=== PATIENT | male | born 1930 | race Caucasian/White ===

== ENCOUNTER 2016-04-22 00:58 | Inpatient (IN) | payer OTHER ==
[~2016-04-22] VITALS: Ht 185.4 cm; Wt 91.6 kg
[~2016-04-22 00:58] MED LIST: ACID REDUCER150 MG PO; BACLO PO; BACLOFEN10 MG PO; COZAAR50 MG PO; CYM PO; CYMBALTA; CYMBALTA60 MG PO; DIOVAN PO; GABAPENTIN600 MG PO; HYDROCODONE PO; LIORESAL10 MG PO; MYRBETRIQ25 MG PO; PAROXETINE HCL20 MG PO; PERCOCET 5/31 TABLET PO; RANITIDINE; ZOLPIDEM; [UNRECOGNIZED DRUG - REMARK]
[2016-04-22 02:35] LABS: EOSINOPHIL (%) 1.9 % (0-5); EOSINOPHIL COUNT 0.2 K/uL (0-0.3); IMMATURE GRANULOCYTE (%) 0.1 % (0.0-0.7); IMMATURE GRANULOCYTE COUNT 0.1 K/uL; LYMPHOCYTE COUNT 2.7 K/uL (1.0-2.8); MCH 30.4 PG (29.0-34.0); MCHC 33.7 G/DL (30.0-36.0); MCV 90.4 FL (86-99); MEAN PLAT.VOLUME 12.1 uM^3 (9.0-12.4); MONOCYTE (%) 11.3 % (3-12); MONOCYTE COUNT 1.1 K/uL (0-0.8); NEUTROPHIL (%) 57.8 % (45-76); NEUTROPHIL COUNT 5.4 K/uL (1.8-6.4); PLATELET COUNT 129 K/uL (156-360); RBC DIS.WIDTH-CV 15.1 % (11.8-14.6); RBC DIS.WIDTH-SD 49.2 % (39-53); RED BLOOD COUNT 5.42 M/uL (4.00-5.50); WHITE BLOOD COUNT 9.4 K/uL (4.1-10.2)
[2016-04-22 02:53] LABS: CHLORIDE 105 mEq/L (99-109); POTASSIUM 3.8 mEq/L (3.7-5.4); SODIUM 141 mEq/L (136-147)
[2016-04-22 02:55] LABS: GLUCOSE 107 mg/dL (70-99)
[2016-04-22 02:56] LABS: ANION GAP 7 MEQ/L (2-14)
[2016-04-22 02:57] LABS: TOTAL BILIRUBIN 0.9 mg/dL (0.0-1.0)
[2016-04-22 02:59] LABS: ALKALINE PHOSPHATASE 110 IU/L (3-129); GFR ESTIMATE (CALCULATED) > 59 mL/min/
[2016-04-22 03:00] LABS: UREA NITROGEN (BUN) 24 mg/dL (9-23)
[2016-04-22 03:02] LABS: LIPASE 11 U/L (1.0-51.0)
[2016-04-22 03:06] LABS: BASE EXCESS 2.7 mEq/L (-3 to +3); BICARBONATE 30.2 mEq/L (22-26); CARBOXY HGB 1.8 % (0-5); COMMENTS - BLOOD GASES C+A+; DEVICE NC; METHEMOGLOBIN 1.2 % (0-1.5); O2 FLOW 1 L/MIN; PCO2 56 mm Hg (35-45); PO2 98 mm Hg (80-100); SITE RR; pH 7.34 (7.35-7.45)
[2016-04-22 03:48] LABS: ADD MIUA? YES; BILIRUBIN NEGATIVE; BLOOD SMALL; COLOR AMBER ((YELLOW)); GLUCOSE (STRIP) NEGATIVE; KETONES 5; LEUKOCYTES NEGATIVE; NITRITE NEGATIVE; PROTEIN (STRIP) NEGATIVE
[2016-04-22 03:52] LABS: BACTERIA NONE SEEN /HPF; EPITHELIAL CELLS NONE SEEN /HPF; HYALINE CASTS 0-5 /LPF; MUCUS 3+ /LPF; RED BLOOD CELLS 20-30 /HPF (0-5); UCUL ADDED? NO; WHITE BLOOD CELLS 0-5 /HPF (0-5)
[2016-04-22] MEDS ORDERED: OXYBUTYNIN CHLO15 MG PO (05:31)
[2016-04-22] MEDS ORDERED: GABAPENTIN800 MG PO (05:31)
[2016-04-22] MEDS ORDERED: BACLOFEN20 MG PO (07:54)
[2016-04-22 10:44] LABS: BASE EXCESS 2.1 mEq/L (-3 to +3); BICARBONATE 29.9 mEq/L (22-26); CARBOXY HGB 2.7 % (0-5); COMMENTS - BLOOD GASES A+C+; DEVICE NC; METHEMOGLOBIN 0.9 % (0-1.5); O2 FLOW 1 L/MIN; PCO2 58 mm Hg (35-45); PO2 105 mm Hg (80-100); SITE RR; pH 7.32 (7.35-7.45)
[2016-04-22 16:57] VITALS: BP 170/100
[2016-04-22 20:12] VITALS: BP 144/83
[2016-04-22 21:34] LABS: POINT-OF-CARE METER ID UU14188625
[2016-04-22 23:59] VITALS: BP 146/94
[2016-04-23 03:44] VITALS: BP 150/84
[2016-04-23 04:05] LABS: POINT-OF-CARE METER ID UU14188625
[2016-04-23 07:23] LABS: HEMATOCRIT 48.4 % (38.0-50.0); MCHC 33.7 G/DL (30.0-36.0); MEAN PLAT.VOLUME 12.8 uM^3 (9.0-12.4); PLATELET COUNT 98 K/uL (156-360); RBC DIS.WIDTH-CV 14.7 % (11.8-14.6); RBC DIS.WIDTH-SD 49.9 % (39-53); RED BLOOD COUNT 5.26 M/uL (4.00-5.50); WHITE BLOOD COUNT 8.1 K/uL (4.1-10.2)
[2016-04-23 07:29] VITALS: BP 167/88
[2016-04-23 07:47] LABS: ALKALINE PHOSPHATASE 88 IU/L (3-129); ANION GAP 7 MEQ/L (2-14); CHLORIDE 106 MEQ/L (99-109); GFR ESTIMATE (CALCULATED) > 59 mL/min/; GLUCOSE 88 mg/dL (70-99); SAMPLE HEMOLYSIS CHECK 2; SAMPLE ICTERIC CHECK 0; SAMPLE LIPEMIA CHECK 0; SODIUM 141 MEQ/L (136-147); TOTAL BILIRUBIN 0.9 MG/DL (0.0-1.0); UREA NITROGEN (BUN) 17 mg/dL (9-23)
[2016-04-23 07:48] LABS: POTASSIUM 4.6 MEQ/L (3.7-5.4)
[2016-04-23 11:05] VITALS: BP 143/75
[2016-04-23 15:01] VITALS: BP 140/81
[2016-04-23 19:18] VITALS: BP 177/84
[2016-04-24 00:03] VITALS: BP 160/92
[2016-04-24 03:46] VITALS: BP 160/90
[2016-04-24 07:01] LABS: EOSINOPHIL (%) 0.8 % (0-5); EOSINOPHIL COUNT 0.1 K/uL (0-0.3); HEMATOCRIT 47.8 % (38.0-50.0); IMMATURE GRANULOCYTE (%) 0.2 % (0.0-0.7); LYMPHOCYTE COUNT 1.6 K/uL (1.0-2.8); MCH 29.6 PG (29.0-34.0); MCHC 33.1 G/DL (30.0-36.0); MCV 89.5 FL (86-99); MEAN PLAT.VOLUME 12.4 uM^3 (9.0-12.4); MONOCYTE (%) 10.6 % (3-12); MONOCYTE COUNT 0.9 K/uL (0-0.8); NEUTROPHIL (%) 69.4 % (45-76); NEUTROPHIL COUNT 5.9 K/uL (1.8-6.4); PLATELET COUNT 107 K/uL (156-360); RBC DIS.WIDTH-CV 14.4 % (11.8-14.6); RBC DIS.WIDTH-SD 46.7 % (39-53); RED BLOOD COUNT 5.34 M/uL (4.00-5.50); WHITE BLOOD COUNT 8.4 K/uL (4.1-10.2)
[2016-04-24 07:23] LABS: ANION GAP 7 MEQ/L (2-14); CHLORIDE 102 MEQ/L (99-109); GFR ESTIMATE (CALCULATED) > 59 mL/min/; GLUCOSE 107 mg/dL (70-99); POTASSIUM 3.7 MEQ/L (3.7-5.4); SAMPLE HEMOLYSIS CHECK 0; SAMPLE ICTERIC CHECK 0; SAMPLE LIPEMIA CHECK 0; SODIUM 137 MEQ/L (136-147); UREA NITROGEN (BUN) 15 mg/dL (9-23)
[2016-04-24 07:31] VITALS: BP 158/75
[2016-04-24 11:06] VITALS: BP 142/74
[2016-04-24 15:21] VITALS: BP 165/75
[2016-04-24 19:36] VITALS: BP 142/83
[2016-04-25] VITALS: BP 151/89
[2016-04-25 04:00] VITALS: BP 153/96
[2016-04-25 07:52] VITALS: BP 128/87
[2016-04-25 13:58] VITALS: BP 126/78
[2016-04-25 19:45] VITALS: BP 147/93
[2016-04-25 23:39] VITALS: BP 146/98
[2016-04-26 04:17] VITALS: BP 134/92
[2016-04-26 06:31] LABS: EOSINOPHIL (%) 0.7 % (0-5); EOSINOPHIL COUNT 0.1 K/uL (0-0.3); IMMATURE GRANULOCYTE (%) 0.3 % (0.0-0.7); LYMPHOCYTE COUNT 1.4 K/uL (1.0-2.8); MONOCYTE (%) 13.3 % (3-12); MONOCYTE COUNT 1.5 K/uL (0-0.8); NEUTROPHIL (%) 73.4 % (45-76); NEUTROPHIL COUNT 8.5 K/uL (1.8-6.4)
[2016-04-26 06:46] LABS: ANION GAP 9 MEQ/L (2-14); CHLORIDE 100 MEQ/L (99-109); GFR ESTIMATE (CALCULATED) > 59 mL/min/; GLUCOSE 115 mg/dL (70-99); POTASSIUM 3.8 MEQ/L (3.7-5.4); SAMPLE HEMOLYSIS CHECK 0; SAMPLE ICTERIC CHECK 0; SAMPLE LIPEMIA CHECK 0; SODIUM 136 MEQ/L (136-147); UREA NITROGEN (BUN) 17 mg/dL (9-23)
[2016-04-26 06:49] LABS: HEMATOCRIT 51.8 % (38.0-50.0); MCV 88.2 FL (86-99); RBC DIS.WIDTH-CV 14.4 % (11.8-14.6); RBC DIS.WIDTH-SD 46.3 % (39-53); RED BLOOD COUNT 5.87 M/uL (4.00-5.50); WHITE BLOOD COUNT 11.6 K/uL (4.1-10.2)
[2016-04-26 07:25] LABS: HEMATOLOGY COMMENT 1 SMEAR COMPATIBLE; MEAN PLAT.VOLUME 12.6 uM^3 (9.0-12.4); PLAT.SUFFICIENCY DECREASED; PLATELET COUNT 112 K/uL (156-360); USER ID TLW
[2016-04-26 07:40] VITALS: BP 173/94
[2016-04-26 15:52] VITALS: BP 167/102
[2016-04-26 23:42] VITALS: BP 170/90
[2016-04-27 00:43] VITALS: BP 165/85
[2016-04-27 07:45] VITALS: BP 166/99
[2016-04-27 15:05] VITALS: BP 138/78
[2016-04-28] VITALS: BP 141/84
[2016-04-28 06:24] LABS: HEMATOCRIT 50.6 % (38.0-50.0); MCH 29.6 PG (29.0-34.0); MCHC 33.2 G/DL (30.0-36.0); MCV 89.1 FL (86-99); MEAN PLAT.VOLUME 12.7 uM^3 (9.0-12.4); PLATELET COUNT 129 K/uL (156-360); RBC DIS.WIDTH-CV 15.1 % (11.8-14.6); RBC DIS.WIDTH-SD 48.5 % (39-53); RED BLOOD COUNT 5.68 M/uL (4.00-5.50); WHITE BLOOD COUNT 12.6 K/uL (4.1-10.2)
[2016-04-28 06:50] LABS: ANION GAP 8 MEQ/L (2-14); CHLORIDE 101 MEQ/L (99-109); GFR ESTIMATE (CALCULATED) > 59 mL/min/; GLUCOSE 101 mg/dL (70-99); SAMPLE HEMOLYSIS CHECK 1; SAMPLE ICTERIC CHECK 0; SAMPLE LIPEMIA CHECK 0; SODIUM 138 MEQ/L (136-147); UREA NITROGEN (BUN) 21 mg/dL (9-23)
[2016-04-28 07:06] LABS: POTASSIUM 3.7 MEQ/L (3.7-5.4)
[2016-04-28 07:35] VITALS: BP 141/84
[2016-04-28] MEDS ORDERED: AMLODIPINE BESYL5 MG PO (11:23)
[2016-04-28] MEDS ORDERED: FAMOTIDINE20 MG PO (11:24)
[2016-04-28 13:10] LABS: ADD MIUA? YES; BILIRUBIN NEGATIVE; BLOOD SMALL; COLOR YELLOW ((YELLOW)); GLUCOSE (STRIP) NEGATIVE; KETONES NEGATIVE; LEUKOCYTES NEGATIVE; NITRITE NEGATIVE; PROTEIN (STRIP) NEGATIVE; SPECIFIC GRAVITY 1.015 (1.000-1.030); UROBILINOGEN 0.2 MG/DL (0.2-1.0)
[2016-04-28 13:22] LABS: BACTERIA NONE SEEN /HPF; EPITHELIAL CELLS NONE SEEN /HPF; FATTY CASTS 0-5 /LPF; HYALINE CASTS 0-5 /LPF; MUCUS 1+ /LPF; RED BLOOD CELLS 0-5 /HPF (0-5); UCUL ADDED? NO; WHITE BLOOD CELLS 0-5 /HPF (0-5)
[2016-04-28 14:50] VITALS: BP 140/71
== END 2016-04-28 16:42 | DRG 70 ==
LOC: EME → EDBD 00:58 → EME 00:58 → 5SOUTH 05:33 → EDOF 05:33 → 5SOUTH 16:38
PROVIDERS: Emergency Medicine; Internal Medicine; Student in an Organized Health Care Education/Training Program
DX: G93.41 Metabolic encephalopathy (principal); J69.0 Pneumonitis due to inhalation of food and vomit; F03.90 Unspecified dementia, unspecified severity, without behavioral disturbance, psychotic disturbance, mood disturbance, and anxiety; F05 Delirium due to known physiological condition; I10 Essential (primary) hypertension; R26.2 Difficulty in walking, not elsewhere classified; K21.9 Gastro-esophageal reflux disease without esophagitis; R09.02 Hypoxemia; Z93.3 Colostomy status; R31.29 Other microscopic hematuria; R79.89 Other specified abnormal findings of blood chemistry; R44.1 Visual hallucinations; G47.00 Insomnia, unspecified; R06.89 Other abnormalities of breathing; I69.398 Other sequelae of cerebral infarction; T44.3X5A Adverse effect of other parasympatholytics [anticholinergics and antimuscarinics] and spasmolytics, initial encounter; R32 Unspecified urinary incontinence; G62.9 Polyneuropathy, unspecified; N32.81 Overactive bladder; H10.33 Unspecified acute conjunctivitis, bilateral; Z87.891 Personal history of nicotine dependence
CPT/HCPCS: 36600; 70450; 71010; 71020; 71250; 80048; 80053; 81003; 82803; 82948; 83605; 83690; 85025; 85027; 87040; 92610 GN; 93005; 94640; 94660; 94799; 97530 GP; 99281; 99285; J0456; J0696; J1644; J1815; J2543; J7030; J7042; J7050; S0028; S0030

== ENCOUNTER 2016-05-31 15:02 | Inpatient (IN) | payer OTHER ==
[~2016-05-31] VITALS: Ht 185.4 cm; Wt 105.5 kg
[~2016-05-31 15:02] MED LIST changes: +AMLODIPINE BESYL5 MG PO; +BACLOFEN20 MG PO; +FAMOTIDINE20 MG PO; +GABAPENTIN800 MG PO; +OXYBUTYNIN CHLO15 MG PO
[2016-05-31 18:09] LABS: EOSINOPHIL (%) 0.5 % (0-5); HEMATOCRIT 52.1 % (38.0-50.0); IMMATURE GRANULOCYTE (%) 1.2 % (0.0-0.7); IMMATURE GRANULOCYTE COUNT 0.1 K/uL; INSTRUMENT ABS NEUTROPHIL CT 6.2 K/uL; LYMPHOCYTE COUNT 0.9 K/uL (1.0-2.8); MCH 29.9 PG (29.0-34.0); MCHC 32.4 G/DL (30.0-36.0); MEAN PLAT.VOLUME 11.6 uM^3 (9.0-12.4); MONOCYTE (%) 14.6 % (3-12); MONOCYTE COUNT 1.2 K/uL (0-0.8); NEUTROPHIL (%) 72.9 % (45-76); NEUTROPHIL COUNT 6.2 K/uL (1.8-6.4); RBC DIS.WIDTH-CV 15.6 % (11.8-14.6); RBC DIS.WIDTH-SD 52.7 % (39-53); RED BLOOD COUNT 5.66 M/uL (4.00-5.50); WHITE BLOOD COUNT 8.5 K/uL (4.1-10.2)
[2016-05-31 18:14] LABS: PLATELET COUNT 169 K/uL (156-360)
[2016-05-31 18:21] LABS: CHLORIDE 100 mEq/L (99-109); POTASSIUM 4.3 mEq/L (3.7-5.4); SODIUM 139 mEq/L (136-147)
[2016-05-31 18:24] LABS: GLUCOSE 114 mg/dL (70-99)
[2016-05-31 18:25] LABS: ANION GAP 10 MEQ/L (2-14)
[2016-05-31 18:26] LABS: TOTAL BILIRUBIN 0.7 mg/dL (0.0-1.0)
[2016-05-31 18:27] LABS: ALKALINE PHOSPHATASE 124 IU/L (3-129); GFR ESTIMATE (CALCULATED) > 59 mL/min/
[2016-05-31 18:28] LABS: UREA NITROGEN (BUN) 20 mg/dL (9-23)
[2016-05-31 18:36] LABS: TROP-I INTERPRETATION NEGATIVE; TROPONIN-I < 0.01 ng/mL (0.0-0.30)
[2016-05-31 18:49] LABS: ADD MIUA? NO; BILIRUBIN NEGATIVE; BLOOD NEGATIVE; COLOR YELLOW ((YELLOW)); GLUCOSE (STRIP) NEGATIVE; KETONES 5; LEUKOCYTES NEGATIVE; NITRITE NEGATIVE; PROTEIN (STRIP) 30; SPECIFIC GRAVITY 1.013 (1.000-1.030); UCUL ADDED? NO; UROBILINOGEN 0.2 MG/DL (0.2-1.0)
[2016-05-31 19:51] LABS: D-DIMER ELISA > 4.00 mg/L FEU (< 0.57)
[2016-05-31] MEDS ORDERED: ACETAMINOPHEN325 M1 PO (22:46)
[2016-05-31] MEDS ORDERED: MILK OF MAGN PO (22:47)
[2016-05-31] MEDS ORDERED: DULCOLAX10 MG PR (22:47)
[2016-05-31] MEDS ORDERED: MIRALAX17 GM PO (22:48)
[2016-05-31] MEDS ORDERED: TRAMADOL HCL50 MG PO (22:48)
[2016-05-31] MEDS ORDERED: CLARITIN10 MG PO (22:49)
[2016-06-01 01:57] LABS: BASE EXCESS 2.8 mEq/L (-3 to +3); BICARBONATE 29.8 mEq/L (22-26); CARBOXY HGB 1.7 % (0-5); COMMENTS - BLOOD GASES A+C+; DEVICE NC; METHEMOGLOBIN 1.3 % (0-1.5); O2 FLOW 5 L/MIN; PCO2 54 mm Hg (35-45); PO2 93 mm Hg (80-100); SITE LR; TOTAL RESP RATE 17 resp/min; pH 7.35 (7.35-7.45)
[2016-06-01 07:25] LABS: INTERNAL CONTROL VALID? YES
[2016-06-01 09:41] LABS: EOSINOPHIL (%) 0 % (0-5); HEMATOCRIT 49.5 % (38.0-50.0); IMMATURE GRANULOCYTE (%) 0.7 % (0.0-0.7); IMMATURE GRANULOCYTE COUNT 0.1 K/uL; INSTRUMENT ABS NEUTROPHIL CT 7.1 K/uL; LYMPHOCYTE COUNT 0.8 K/uL (1.0-2.8); MCH 29.9 PG (29.0-34.0); MCHC 32.5 G/DL (30.0-36.0); MCV 91.8 FL (86-99); MEAN PLAT.VOLUME 11.2 uM^3 (9.0-12.4); MONOCYTE (%) 11.7 % (3-12); MONOCYTE COUNT 1.1 K/uL (0-0.8); NEUTROPHIL (%) 79.1 % (45-76); NEUTROPHIL COUNT 7.1 K/uL (1.8-6.4); PLATELET COUNT 143 K/uL (156-360); RBC DIS.WIDTH-CV 15.4 % (11.8-14.6); RBC DIS.WIDTH-SD 51.7 % (39-53); RED BLOOD COUNT 5.39 M/uL (4.00-5.50)
[2016-06-01 09:54] LABS: CHLORIDE 102 mEq/L (99-109); POTASSIUM 4.6 mEq/L (3.7-5.4); SODIUM 139 mEq/L (136-147)
[2016-06-01 09:55] LABS: GLUCOSE 132 mg/dL (70-99)
[2016-06-01 09:57] LABS: ANION GAP 9 MEQ/L (2-14)
[2016-06-01 09:59] LABS: GFR ESTIMATE (CALCULATED) > 59 mL/min/
[2016-06-01 10:00] VITALS: BP 160/90
[2016-06-01 10:00] LABS: UREA NITROGEN (BUN) 17 mg/dL (9-23)
[2016-06-01 15:15] VITALS: BP 125/70
[2016-06-01 19:23] LABS: METH RESISTANT S AUREUS PCR NEGATIVE (NEGATIVE)
[2016-06-01 19:24] LABS: PROBE CHECK PASS; SPECIMEN PROCESSING CONTROL PASS
[2016-06-01 20:34] VITALS: BP 109/61
[2016-06-01 23:00] VITALS: BP 97/62
[2016-06-02 05:38] VITALS: BP 124/64
[2016-06-02 08:12] VITALS: BP 122/72
[2016-06-02 13:23] LABS: BICARBONATE 26.5 mEq/L (22-26); CARBOXY HGB 1.8 % (0-5); COMMENTS - BLOOD GASES A+C+; DEVICE NC; METHEMOGLOBIN 1.6 % (0-1.5); O2 FLOW 5 L/MIN; PCO2 40 mm Hg (35-45); PO2 56 mm Hg (80-100); SITE LR; TOTAL RESP RATE 20 resp/min; pH 7.43 (7.35-7.45)
[2016-06-02 15:08] VITALS: BP 147/95
[2016-06-02 16:00] VITALS: BP 118/69
[2016-06-02 17:04] LABS: TROP-I INTERPRETATION NEGATIVE; TROPONIN-I 0.02 ng/mL (0.0-0.30)
[2016-06-02 19:47] VITALS: BP 132/62
[2016-06-02 22:20] LABS: INFLUENZA A VIRAL ANTIGEN NEGATIVE; INFLUENZA B VIRAL ANTIGEN NEGATIVE
[2016-06-02 22:52] VITALS: BP 113/58
[2016-06-02 22:57] LABS: TROP-I INTERPRETATION NEGATIVE; TROPONIN-I 0.02 ng/mL (0.0-0.30)
[2016-06-03 04:53] VITALS: BP 127/79
[2016-06-03 04:59] LABS: TROP-I INTERPRETATION NEGATIVE; TROPONIN-I 0.01 ng/mL (0.0-0.30)
[2016-06-03 07:30] VITALS: BP 129/87
[2016-06-03 08:14] LABS: HEMATOCRIT 45.2 % (38.0-50.0); MCH 29.5 PG (29.0-34.0); MCHC 32.7 G/DL (30.0-36.0); PLATELET COUNT 123 K/uL (156-360); RBC DIS.WIDTH-CV 15.2 % (11.8-14.6); RED BLOOD COUNT 5.02 M/uL (4.00-5.50)
[2016-06-03 11:42] VITALS: BP 107/63
[2016-06-03 15:41] VITALS: BP 107/56
[2016-06-03 20:06] VITALS: BP 108/58
[2016-06-03 23:24] VITALS: BP 157/59
[2016-06-04 04:38] VITALS: BP 146/70
[2016-06-04 06:20] LABS: HEMATOCRIT 44.7 % (38.0-50.0); MCH 29.5 PG (29.0-34.0); MCHC 33.3 G/DL (30.0-36.0); MCV 88.5 FL (86-99); MEAN PLAT.VOLUME 13.4 uM^3 (9.0-12.4); PLATELET COUNT 148 K/uL (156-360); RBC DIS.WIDTH-SD 48.3 % (39-53); RED BLOOD COUNT 5.05 M/uL (4.00-5.50); WHITE BLOOD COUNT 15.6 K/uL (4.1-10.2)
[2016-06-04 06:44] LABS: ANION GAP 9 MEQ/L (2-14); CHLORIDE 96 MEQ/L (99-109); GFR ESTIMATE (CALCULATED) > 59 mL/min/; POTASSIUM 4.1 MEQ/L (3.7-5.4); SAMPLE HEMOLYSIS CHECK 0; SAMPLE ICTERIC CHECK 0; SAMPLE LIPEMIA CHECK 0; SODIUM 134 MEQ/L (136-147)
[2016-06-04 06:46] LABS: GLUCOSE 97 mg/dL (70-99); UREA NITROGEN (BUN) 27 mg/dL (9-23)
[2016-06-04 07:20] VITALS: BP 156/86
[2016-06-04 11:51] VITALS: BP 135/60
[2016-06-04 15:39] VITALS: BP 133/75
[2016-06-04 19:53] VITALS: BP 163/89
[2016-06-04 22:13] VITALS: BP 155/89
[2016-06-05 02:53] VITALS: BP 153/79
[2016-06-05 06:15] LABS: MCH 29.3 PG (29.0-34.0); MCHC 33.3 G/DL (30.0-36.0); MCV 88.1 FL (86-99); RBC DIS.WIDTH-CV 14.6 % (11.8-14.6); RED BLOOD COUNT 5.56 M/uL (4.00-5.50); WHITE BLOOD COUNT 14.6 K/uL (4.1-10.2)
[2016-06-05 06:40] LABS: ANION GAP 9 MEQ/L (2-14); CHLORIDE 93 MEQ/L (99-109); GFR ESTIMATE (CALCULATED) > 59 mL/min/; GLUCOSE 129 mg/dL (70-99); SAMPLE HEMOLYSIS CHECK 1; SAMPLE ICTERIC CHECK 0; SAMPLE LIPEMIA CHECK 0; SODIUM 130 MEQ/L (136-147); UREA NITROGEN (BUN) 19 mg/dL (9-23)
[2016-06-05 06:41] LABS: POTASSIUM 4.2 MEQ/L (3.7-5.4)
[2016-06-05 07:15] VITALS: BP 134/77
[2016-06-05 07:16] LABS: MEAN PLAT.VOLUME 12.8 uM^3 (9.0-12.4); PLAT.SUFFICIENCY DECREASED; PLATELET COUNT 125 K/uL (156-360)
[2016-06-05 11:11] VITALS: BP 168/75
[2016-06-05 11:51] LABS: BASE EXCESS 3.5 mEq/L (-3 to +3); BICARBONATE 30.9 mEq/L (22-26); CARBOXY HGB 2.1 % (0-5); METHEMOGLOBIN 1.5 % (0-1.5); PO2 67 mm Hg (80-100); pH 7.35 (7.35-7.45)
[2016-06-05 11:52] LABS: COMMENTS - BLOOD GASES AC+; DEVICE HFNC; O2 FLOW 8 L/MIN; PCO2 56 mm Hg (35-45); SITE LR; TOTAL RESP RATE 24 resp/min
[2016-06-05 13:59] LABS: BASE EXCESS 3.5 mEq/L (-3 to +3); BICARBONATE 31.3 mEq/L (22-26); CARBOXY HGB 1.3 % (0-5); COMMENTS - BLOOD GASES C+A-N/A; CONTINUOUS POS AIRWAY PRESSURE 8 cm H2O; DEVICE BIPAP; METHEMOGLOBIN 1.6 % (0-1.5); O2 FLOW 15 L/MIN; PCO2 58 mm Hg (35-45); PO2 157 mm Hg (80-100); PRES. SUPPORT 15 CM/H2O; SITE RR; TOTAL RESP RATE 22 resp/min; pH 7.34 (7.35-7.45)
[2016-06-05 15:27] VITALS: BP 157/76
[2016-06-05 19:06] LABS: BASE EXCESS 5.2 mEq/L (-3 to +3); BICARBONATE 31.6 mEq/L (22-26); CARBOXY HGB 1.8 % (0-5); COMMENTS - BLOOD GASES A+C+; DEVICE NCH; METHEMOGLOBIN 1.6 % (0-1.5); O2 FLOW 8 L/MIN; PCO2 51 mm Hg (35-45); PO2 67 mm Hg (80-100); SITE LR; TOTAL RESP RATE 24 resp/min
[2016-06-05 19:28] VITALS: BP 169/81
[2016-06-05 22:29] VITALS: BP 145/88
[2016-06-06 04:11] VITALS: BP 149/88
[2016-06-06 06:49] LABS: EOSINOPHIL (%) 0 % (0-5); HEMATOCRIT 49.6 % (38.0-50.0); IMMATURE GRANULOCYTE (%) 1.7 % (0.0-0.7); IMMATURE GRANULOCYTE COUNT 0.2 K/uL; INSTRUMENT ABS NEUTROPHIL CT 9.8 K/uL; LYMPHOCYTE COUNT 0.9 K/uL (1.0-2.8); MCH 29.3 PG (29.0-34.0); MCHC 33.7 G/DL (30.0-36.0); MCV 87.2 FL (86-99); MEAN PLAT.VOLUME 11.8 uM^3 (9.0-12.4); MONOCYTE (%) 4.5 % (3-12); MONOCYTE COUNT 0.5 K/uL (0-0.8); NEUTROPHIL (%) 85.6 % (45-76); NEUTROPHIL COUNT 9.8 K/uL (1.8-6.4); PLATELET COUNT 153 K/uL (156-360); RBC DIS.WIDTH-CV 14.3 % (11.8-14.6); RBC DIS.WIDTH-SD 46.1 % (39-53); RED BLOOD COUNT 5.69 M/uL (4.00-5.50); WHITE BLOOD COUNT 11.5 K/uL (4.1-10.2)
[2016-06-06 07:11] LABS: ANION GAP 8 MEQ/L (2-14); CHLORIDE 92 MEQ/L (99-109); GFR ESTIMATE (CALCULATED) > 59 mL/min/; GLUCOSE 163 mg/dL (70-99); MAGNESIUM 2.2 mg/dl (1.3-2.7); SAMPLE HEMOLYSIS CHECK 0; SAMPLE ICTERIC CHECK 0; SAMPLE LIPEMIA CHECK 0; SODIUM 130 MEQ/L (136-147); UREA NITROGEN (BUN) 24 mg/dL (9-23)
[2016-06-06 07:56] LABS: BASE EXCESS 6.4 mEq/L (-3 to +3); BICARBONATE 31.9 mEq/L (22-26); CARBOXY HGB 1.6 % (0-5); COMMENTS - BLOOD GASES A+C+; DEVICE HFNC; METHEMOGLOBIN 1.6 % (0-1.5); O2 FLOW 14 L/MIN; PCO2 47 mm Hg (35-45); PO2 66 mm Hg (80-100); SITE LRA; pH 7.44 (7.35-7.45)
[2016-06-06 07:57] VITALS: BP 138/90
[2016-06-06 07:57] LABS: TOTAL RESP RATE 20 resp/min
[2016-06-06 07:58] LABS: URIC ACID 3.3 mg/dL (3.1-9.2)
[2016-06-06 11:50] VITALS: BP 134/75
[2016-06-06 16:09] VITALS: BP 128/77
[2016-06-06 19:25] VITALS: BP 109/63
[2016-06-06 23:29] VITALS: BP 94/76
[2016-06-07 03:25] VITALS: BP 104/62
[2016-06-07 07:26] LABS: ANION GAP 10 MEQ/L (2-14); CHLORIDE 93 MEQ/L (99-109); GFR ESTIMATE (CALCULATED) > 59 mL/min/; GLUCOSE 154 mg/dL (70-99); POTASSIUM 3.6 MEQ/L (3.7-5.4); SAMPLE HEMOLYSIS CHECK 0; SAMPLE ICTERIC CHECK 0; SAMPLE LIPEMIA CHECK 0; SODIUM 134 MEQ/L (136-147); UREA NITROGEN (BUN) 34 mg/dL (9-23)
[2016-06-07 07:29] LABS: HEMATOCRIT 49.6 % (38.0-50.0); MCH 28.9 PG (29.0-34.0); MCHC 32.9 G/DL (30.0-36.0); MCV 87.9 FL (86-99); RBC DIS.WIDTH-CV 14.4 % (11.8-14.6); RBC DIS.WIDTH-SD 46.5 % (39-53); RED BLOOD COUNT 5.64 M/uL (4.00-5.50)
[2016-06-07 07:41] LABS: PLATELET COUNT 208 K/uL (156-360)
[2016-06-07 08:06] VITALS: BP 116/69
[2016-06-07 11:21] VITALS: BP 142/77
[2016-06-07 15:22] VITALS: BP 110/68
[2016-06-07 20:00] VITALS: BP 119/66
[2016-06-07 23:30] VITALS: BP 146/75
[2016-06-08 03:00] VITALS: BP 141/82
[2016-06-08 05:47] LABS: HEMATOCRIT 49.5 % (38.0-50.0); MCHC 33.3 G/DL (30.0-36.0); MCV 87.1 FL (86-99); MEAN PLAT.VOLUME 11.5 uM^3 (9.0-12.4); PLATELET COUNT 240 K/uL (156-360); RBC DIS.WIDTH-CV 14.6 % (11.8-14.6); RBC DIS.WIDTH-SD 46.9 % (39-53); RED BLOOD COUNT 5.68 M/uL (4.00-5.50); WHITE BLOOD COUNT 14.8 K/uL (4.1-10.2)
[2016-06-08 06:00] LABS: ANION GAP 11 MEQ/L (2-14); CHLORIDE 97 MEQ/L (99-109); GFR ESTIMATE (CALCULATED) > 59 mL/min/; GLUCOSE 158 mg/dL (70-99); POTASSIUM 3.8 MEQ/L (3.7-5.4); SAMPLE HEMOLYSIS CHECK 0; SAMPLE ICTERIC CHECK 0; SAMPLE LIPEMIA CHECK 0; SODIUM 138 MEQ/L (136-147); UREA NITROGEN (BUN) 44 mg/dL (9-23)
[2016-06-08 08:13] VITALS: BP 137/81
[2016-06-08 11:47] VITALS: BP 145/84
[2016-06-08 16:03] VITALS: BP 138/75
[2016-06-08 20:09] VITALS: BP 142/97
[2016-06-08 23:11] VITALS: BP 158/99
[2016-06-09 04:04] VITALS: BP 137/78
[2016-06-09 06:41] LABS: HEMATOCRIT 48.6 % (38.0-50.0); MCH 29.1 PG (29.0-34.0); MCHC 33.5 G/DL (30.0-36.0); MCV 86.8 FL (86-99); MEAN PLAT.VOLUME 11.2 uM^3 (9.0-12.4); PLATELET COUNT 254 K/uL (156-360); RBC DIS.WIDTH-CV 14.6 % (11.8-14.6); RBC DIS.WIDTH-SD 46.9 % (39-53); WHITE BLOOD COUNT 13.4 K/uL (4.1-10.2)
[2016-06-09 07:03] LABS: ANION GAP 11 MEQ/L (2-14); CHLORIDE 105 MEQ/L (99-109); GFR ESTIMATE (CALCULATED) > 59 mL/min/; GLUCOSE 168 mg/dL (70-99); POTASSIUM 4.1 MEQ/L (3.7-5.4); SAMPLE HEMOLYSIS CHECK 0; SAMPLE ICTERIC CHECK 0; SAMPLE LIPEMIA CHECK 0; SODIUM 144 MEQ/L (136-147); UREA NITROGEN (BUN) 48 mg/dL (9-23)
[2016-06-09 07:32] VITALS: BP 169/93
[2016-06-09] MEDS ORDERED: ASPIR-LOW81 MG PO (08:22)
[2016-06-09] MEDS ORDERED: MEDROL DOSEPAK4 MG PO (08:22)
[2016-06-09] MEDS ORDERED: FUROSEMIDE20 MG PO (08:22)
[2016-06-09] MEDS ORDERED: BENADRYL25 MG PO (08:22)
[2016-06-09] MEDS ORDERED: PRAVASTATIN SOD40 MG PO (08:22)
[2016-06-09] MEDS ORDERED: XOPENEX1.25 MG/0. IPPB (08:22)
[2016-06-09] MEDS ORDERED: CARDIZEM CD,CA240 MG PO (08:22)
[2016-06-09 11:18] VITALS: BP 134/69
[2016-06-09] MEDS ORDERED: PERIDEX1 ML MM (11:37)
[2016-06-10] MEDS ORDERED: BENADRYL25 MG PO (14:11)
[2016-06-10] MEDS ORDERED: MEDROL4 MG PO (14:17)
[2016-06-10] MEDS ORDERED: OSELTAMIVIR PHO75 MG PO (14:20)
[2016-06-10] MEDS ORDERED: PRAVACHOL40 MG PO (14:21)
[2016-06-10] MEDS ORDERED: NYSTATIN100000 UN1 PO (14:27)
[2016-06-10] MEDS ORDERED: ACETAMINOPHEN325 M1 PO (14:30)
[2016-06-10] MEDS ORDERED: ALBUTEROL2.5 MG/3 M IH (14:32)
== END 2016-06-09 14:44 | DRG 189 ==
LOC: EME → EDBD 15:02 → EME 15:02 → EDOF 06-01 02:02 → 4EAST 06-01 02:02 → EDOF 06-01 02:02 → 4EAST 06-01 09:48
PROVIDERS: Emergency Medicine; Family Medicine; Hospitalist; Internal Medicine; Internal Medicine Cardiovascular Disease; Internal Medicine Infectious Disease; Internal Medicine Nephrology; Internal Medicine Pulmonary Disease; Nurse Practitioner Family
PROC: 5A09358 Assistance with Respiratory Ventilation, Less than 24 Consecutive Hours, Intermittent Positive Airway Pressure (ICD-10-PCS; principal; 2016-06-05)
DX: J96.01 Acute respiratory failure with hypoxia (principal); J96.02 Acute respiratory failure with hypercapnia; J69.0 Pneumonitis due to inhalation of food and vomit; Y95 Nosocomial condition; E22.2 Syndrome of inappropriate secretion of antidiuretic hormone; B37.0 Candidal stomatitis; E86.0 Dehydration; I11.0 Hypertensive heart disease with heart failure; I50.41 Acute combined systolic (congestive) and diastolic (congestive) heart failure; R41.0 Disorientation, unspecified; E87.6 Hypokalemia; T40.4X5A Adverse effect of other synthetic narcotics, initial encounter; L89.90 Pressure ulcer of unspecified site, unspecified stage; F03.90 Unspecified dementia, unspecified severity, without behavioral disturbance, psychotic disturbance, mood disturbance, and anxiety; I69.351 Hemiplegia and hemiparesis following cerebral infarction affecting right dominant side; R00.0 Tachycardia, unspecified; D69.6 Thrombocytopenia, unspecified; F32.9 Major depressive disorder, single episode, unspecified; M25.512 Pain in left shoulder; I70.0 Atherosclerosis of aorta; G62.89 Other specified polyneuropathies; K21.9 Gastro-esophageal reflux disease without esophagitis; R26.2 Difficulty in walking, not elsewhere classified; G89.29 Other chronic pain; N31.9 Neuromuscular dysfunction of bladder, unspecified; Z93.3 Colostomy status; Z87.891 Personal history of nicotine dependence; Z79.82 Long term (current) use of aspirin; Z87.440 Personal history of urinary (tract) infections; Z85.828 Personal history of other malignant neoplasm of skin
CPT/HCPCS: 31720; 36600; 71010; 71275; 74230; 76770; 80048; 80053; 80202; 81003; 82533 91; 82803; 83605; 83735; 83880; 83930; 83935; 84100; 84145 90; 84300; 84439; 84443; 84484; 84550; 85025; 85027; 85379; 87040; 87070; 87086; 87106; 87205; 87449; 87502; 87641; 92526 GN; 92611 GN; 93005; 93306; 94010; 94640; 94640 76; 94660; 94667; 94668; 94799; 99202; 99281; 99285; J0456; J0692; J1644; J1720; J1940; J2543; J2920; J2930; J3370; J7030; J7050

== ENCOUNTER 2016-06-10 11:58 | Inpatient (IN) | payer OTHER ==
[~2016-06-10] VITALS: Ht 185.4 cm; Wt 89.5 kg
[~2016-06-10 11:58] MED LIST changes: +ACETAMINOPHEN325 M1 PO; +ASPIR-LOW81 MG PO; +BENADRYL25 MG PO; +CARDIZEM CD,CA240 MG PO; +CLARITIN10 MG PO; +DULCOLAX10 MG PR; +FUROSEMIDE20 MG PO; +MEDROL DOSEPAK4 MG PO; +MILK OF MAGN PO; +MIRALAX17 GM PO; +PERIDEX1 ML MM; +PRAVASTATIN SOD40 MG PO; +TRAMADOL HCL50 MG PO; +XOPENEX1.25 MG/0. IPPB
[2016-06-10 12:45] LABS: BASE EXCESS 3.7 mEq/L (-3 to +3); BICARBONATE 29.7 mEq/L (22-26); CARBOXY HGB 1.8 % (0-5); METHEMOGLOBIN 1.5 % (0-1.5); PCO2 48 mm Hg (35-45)
[2016-06-10 12:46] LABS: COMMENTS - BLOOD GASES A+C+; DEVICE NC; O2 FLOW 3 L/MIN; PO2 84 mm Hg (80-100); SITE LRAD; TOTAL RESP RATE 20 resp/min
[2016-06-10 13:04] LABS: CHLORIDE 105 mEq/L (99-109); POTASSIUM 3.9 mEq/L (3.7-5.4); SODIUM 142 mEq/L (136-147)
[2016-06-10 13:07] LABS: GLUCOSE 160 mg/dL (70-99)
[2016-06-10 13:08] LABS: ANION GAP 11 MEQ/L (2-14); TOTAL BILIRUBIN 0.7 mg/dL (0.0-1.0)
[2016-06-10 13:10] LABS: ALKALINE PHOSPHATASE 88 IU/L (3-129); GFR ESTIMATE (CALCULATED) > 59 mL/min/; HEMATOCRIT 51.8 % (38.0-50.0); MCH 29.4 PG (29.0-34.0); MCHC 33.6 G/DL (30.0-36.0); MCV 87.6 FL (86-99); MEAN PLAT.VOLUME 10.7 uM^3 (9.0-12.4); PLATELET COUNT 258 K/uL (156-360); RBC DIS.WIDTH-CV 15.3 % (11.8-14.6); RED BLOOD COUNT 5.91 M/uL (4.00-5.50)
[2016-06-10 13:11] LABS: UREA NITROGEN (BUN) 49 mg/dL (9-23)
[2016-06-10 13:17] LABS: TROP-I INTERPRETATION NEGATIVE; TROPONIN-I 0.02 ng/mL (0.0-0.30)
[2016-06-10 13:29] LABS: WHITE BLOOD COUNT 21.5 K/uL (4.1-10.2)
[2016-06-10 13:32] LABS: ADD MIUA? YES; BILIRUBIN NEGATIVE; BLOOD SMALL; COLOR YELLOW ((YELLOW)); GLUCOSE (STRIP) NEGATIVE; KETONES NEGATIVE; LEUKOCYTES NEGATIVE; NITRITE NEGATIVE; PROTEIN (STRIP) NEGATIVE; UROBILINOGEN 0.2 MG/DL (0.2-1.0)
[2016-06-10 13:38] LABS: BACTERIA NONE SEEN /HPF; EPITHELIAL CELLS RARE /HPF; HYALINE CASTS 20-30 /LPF; MUCUS TRACE /LPF; RED BLOOD CELLS 0-5 /HPF (0-5); UCUL ADDED? NO; WHITE BLOOD CELLS 0-5 /HPF (0-5)
[2016-06-10] MEDS ORDERED: BENADRYL25 MG PO (14:11)
[2016-06-10] MEDS ORDERED: MEDROL4 MG PO (14:17)
[2016-06-10] MEDS ORDERED: OSELTAMIVIR PHO75 MG PO (14:20)
[2016-06-10] MEDS ORDERED: PRAVACHOL40 MG PO (14:21)
[2016-06-10] MEDS ORDERED: NYSTATIN100000 UN1 PO (14:27)
[2016-06-10] MEDS ORDERED: ACETAMINOPHEN325 M1 PO (14:30)
[2016-06-10] MEDS ORDERED: ALBUTEROL2.5 MG/3 M IH (14:32)
[2016-06-10 14:45] LABS: ABS NEUTROPHIL COUNT 18.5; ANISOCYTOSIS 1+; ATYPICAL LYMPHOCYTE 0.4 %; BAND NEUTROPHILS 1.8 % (0-8.0); EOSINOPHIL ABS CT 0; INSTRUMENT ABS NEUTROPHIL CT 17.1 K/uL; LYMPHOCYTES 2.2 % (15.0-45.0); MYELOCYTES 0.9 %; PLAT.SUFFICIENCY ADEQUATE; SEG.NEUTROPHILS 84.2 % (46.0-76.0)
[2016-06-10 17:00] LABS: INFLUENZA A VIRAL ANTIGEN POSITIVE; INFLUENZA B VIRAL ANTIGEN NEGATIVE
[2016-06-10 18:10] VITALS: BP 152/83
[2016-06-10 20:13] VITALS: BP 160/82
[2016-06-11 00:06] VITALS: BP 151/87
[2016-06-11 04:17] VITALS: BP 153/84
[2016-06-11 06:42] LABS: HEMATOCRIT 47.8 % (38.0-50.0); MCH 29.4 PG (29.0-34.0); MCHC 32.8 G/DL (30.0-36.0); MCV 89.5 FL (86-99); MEAN PLAT.VOLUME 11.2 uM^3 (9.0-12.4); PLATELET COUNT 212 K/uL (156-360); RBC DIS.WIDTH-CV 15.2 % (11.8-14.6); RBC DIS.WIDTH-SD 49.9 % (39-53); RED BLOOD COUNT 5.34 M/uL (4.00-5.50); WHITE BLOOD COUNT 19.1 K/uL (4.1-10.2)
[2016-06-11 07:00] VITALS: BP 155/83
[2016-06-11 07:08] LABS: ANION GAP 7 MEQ/L (2-14); CHLORIDE 107 MEQ/L (99-109); GFR ESTIMATE (CALCULATED) > 59 mL/min/; GLUCOSE 127 mg/dL (70-99); POTASSIUM 4.1 MEQ/L (3.7-5.4); SAMPLE HEMOLYSIS CHECK 0; SAMPLE ICTERIC CHECK 0; SAMPLE LIPEMIA CHECK 0; SODIUM 142 MEQ/L (136-147); UREA NITROGEN (BUN) 42 mg/dL (9-23)
[2016-06-11 11:00] VITALS: BP 169/86
[2016-06-11 16:21] VITALS: BP 146/80
[2016-06-11 17:49] LABS: C DIFF TOXIN NEGATIVE (NEGATIVE)
[2016-06-11 17:57] LABS: PROBE CHECK PASS; SPECIMEN PROCESSING CONTROL PASS
[2016-06-11 19:15] VITALS: BP 155/81
[2016-06-12 00:52] VITALS: BP 169/75
[2016-06-12 04:47] VITALS: BP 161/95
[2016-06-12 06:21] LABS: HEMATOCRIT 47.5 % (38.0-50.0); MCH 29.1 PG (29.0-34.0); MCHC 32.8 G/DL (30.0-36.0); MCV 88.6 FL (86-99); PLATELET COUNT 199 K/uL (156-360); RBC DIS.WIDTH-CV 15.1 % (11.8-14.6); RBC DIS.WIDTH-SD 49.1 % (39-53); RED BLOOD COUNT 5.36 M/uL (4.00-5.50); WHITE BLOOD COUNT 19.2 K/uL (4.1-10.2)
[2016-06-12 06:44] LABS: ANION GAP 9 MEQ/L (2-14); CHLORIDE 105 MEQ/L (99-109); GFR ESTIMATE (CALCULATED) > 59 mL/min/; GLUCOSE 96 mg/dL (70-99); POTASSIUM 4.2 MEQ/L (3.7-5.4); SAMPLE HEMOLYSIS CHECK 0; SAMPLE ICTERIC CHECK 0; SAMPLE LIPEMIA CHECK 0; SODIUM 140 MEQ/L (136-147); UREA NITROGEN (BUN) 30 mg/dL (9-23)
[2016-06-12 07:00] VITALS: BP 174/99
[2016-06-12 12:38] VITALS: BP 161/98
[2016-06-12 15:19] VITALS: BP 122/78
[2016-06-12 19:15] VITALS: BP 130/78
[2016-06-13] VITALS (7 sets, daily range): BP systolic 117–168; BP diastolic 62–105
[2016-06-13 09:11] LABS: HEMATOCRIT 51.3 % (38.0-50.0); MCH 29.1 PG (29.0-34.0); MCHC 32.7 G/DL (30.0-36.0); MCV 88.9 FL (86-99); MEAN PLAT.VOLUME 11.1 uM^3 (9.0-12.4); PLATELET COUNT 218 K/uL (156-360); RBC DIS.WIDTH-CV 15.3 % (11.8-14.6); RBC DIS.WIDTH-SD 49.7 % (39-53); RED BLOOD COUNT 5.77 M/uL (4.00-5.50); WHITE BLOOD COUNT 20.9 K/uL (4.1-10.2)
[2016-06-13 15:17] LABS: ANION GAP 8 MEQ/L (2-14); CHLORIDE 104 MEQ/L (99-109); SAMPLE HEMOLYSIS CHECK 1; SAMPLE ICTERIC CHECK 0; SAMPLE LIPEMIA CHECK 0; SODIUM 136 MEQ/L (136-147)
[2016-06-13 15:27] LABS: GFR ESTIMATE (CALCULATED) > 59 mL/min/; UREA NITROGEN (BUN) 36 mg/dL (9-23)
[2016-06-13 15:33] LABS: GLUCOSE 200 mg/dL (70-99); POTASSIUM 4.4 MEQ/L (3.7-5.4)
[2016-06-14 03:44] VITALS: BP 124/82
[2016-06-14 07:30] VITALS: BP 139/76
[2016-06-14 11:43] VITALS: BP 119/66
[2016-06-14 12:38] LABS: HEMATOCRIT 47.7 % (38.0-50.0); MCH 29.3 PG (29.0-34.0); MCHC 32.9 G/DL (30.0-36.0); MEAN PLAT.VOLUME 11.7 uM^3 (9.0-12.4); PLATELET COUNT 205 K/uL (156-360); RBC DIS.WIDTH-CV 15.2 % (11.8-14.6); RBC DIS.WIDTH-SD 49.3 % (39-53); RED BLOOD COUNT 5.36 M/uL (4.00-5.50); WHITE BLOOD COUNT 21.6 K/uL (4.1-10.2)
[2016-06-14 16:00] VITALS: BP 129/74
[2016-06-14 20:21] VITALS: BP 109/60
[2016-06-14 23:00] VITALS: BP 143/81
[2016-06-15 04:47] VITALS: BP 144/81
[2016-06-15 06:02] LABS: HEMATOCRIT 46.7 % (38.0-50.0); MCH 29.4 PG (29.0-34.0); MCV 89.1 FL (86-99); MEAN PLAT.VOLUME 11.7 uM^3 (9.0-12.4); PLATELET COUNT 182 K/uL (156-360); RBC DIS.WIDTH-CV 15.5 % (11.8-14.6); RBC DIS.WIDTH-SD 50.8 % (39-53); RED BLOOD COUNT 5.24 M/uL (4.00-5.50); WHITE BLOOD COUNT 17.7 K/uL (4.1-10.2)
[2016-06-15 06:44] LABS: ANION GAP 10 MEQ/L (2-14); CHLORIDE 105 MEQ/L (99-109); GFR ESTIMATE (CALCULATED) > 59 mL/min/; POTASSIUM 4.1 MEQ/L (3.7-5.4); SAMPLE HEMOLYSIS CHECK 0; SAMPLE ICTERIC CHECK 0; SAMPLE LIPEMIA CHECK 0; SODIUM 141 MEQ/L (136-147); UREA NITROGEN (BUN) 35 mg/dL (9-23)
[2016-06-15 06:50] LABS: GLUCOSE 98 mg/dL (70-99)
[2016-06-15 08:10] VITALS: BP 110/67
[2016-06-15 11:34] VITALS: BP 118/66
[2016-06-15] MEDS ORDERED: FAMOTIDINE20 MG PO (14:24)
[2016-06-15 15:50] VITALS: BP 120/66
[2016-06-15] MEDS ORDERED: OSELTAMIVIR PHO75 MG PO (16:19)
== END 2016-06-15 19:00 | DRG 194 ==
LOC: EME 11:58 → 4EAST 14:52 → EDOF 14:52 → 4EAST 17:50
PROVIDERS: Emergency Medicine; Hospitalist; Internal Medicine; Nurse Practitioner Family
DX: J10.1 Influenza due to other identified influenza virus with other respiratory manifestations (principal); R65.10 Systemic inflammatory response syndrome (SIRS) of non-infectious origin without acute organ dysfunction; E87.2 Acidosis; I69.851 Hemiplegia and hemiparesis following other cerebrovascular disease affecting right dominant side; J98.11 Atelectasis; F33.1 Major depressive disorder, recurrent, moderate; N17.9 Acute kidney failure, unspecified; E86.0 Dehydration; F03.90 Unspecified dementia, unspecified severity, without behavioral disturbance, psychotic disturbance, mood disturbance, and anxiety; R13.10 Dysphagia, unspecified; I69.391 Dysphagia following cerebral infarction; R41.82 Altered mental status, unspecified; I69.392 Facial weakness following cerebral infarction; I10 Essential (primary) hypertension; K21.9 Gastro-esophageal reflux disease without esophagitis; G62.9 Polyneuropathy, unspecified
CPT/HCPCS: 36600; 70450; 71010; 71020; 74176; 74230; 80048; 80053; 81003; 82803; 83605; 83880; 84484; 84999; 85025; 85025 91; 85027; 87040; 87070; 87205; 87493; 87502; 92526 GN; 92610 GN; 92611 GN; 93005; 94010; 94640; 94640 76; 94667; 94668; 94799; 99202; 99281; 99285; J1644; J2543; J3370; J7030; J7050; J7509

== ENCOUNTER 2016-06-24 11:33 | Inpatient (IN) | payer OTHER ==
[~2016-06-24] VITALS: Ht 185.4 cm; Wt 86.6 kg
[~2016-06-24 11:33] MED LIST changes: +ALBUTEROL2.5 MG/3 M IH; +MEDROL4 MG PO; +NYSTATIN100000 UN1 PO; +OSELTAMIVIR PHO75 MG PO; +PRAVACHOL40 MG PO
[2016-06-24 13:11] LABS: CHLORIDE 101 mEq/L (99-109); POTASSIUM 4.4 mEq/L (3.7-5.4); SODIUM 144 mEq/L (136-147)
[2016-06-24 13:13] LABS: GLUCOSE 144 mg/dL (70-99)
[2016-06-24 13:14] LABS: ANION GAP 10 MEQ/L (2-14)
[2016-06-24 13:15] LABS: TOTAL BILIRUBIN 0.5 mg/dL (0.0-1.0)
[2016-06-24 13:16] LABS: ALKALINE PHOSPHATASE 118 IU/L (3-129)
[2016-06-24 13:17] LABS: GFR ESTIMATE (CALCULATED) > 59 mL/min/
[2016-06-24 13:18] LABS: UREA NITROGEN (BUN) 17 mg/dL (9-23)
[2016-06-24 13:23] LABS: TROP-I INTERPRETATION NEGATIVE; TROPONIN-I 0.02 ng/mL (0.0-0.30)
[2016-06-24 13:39] LABS: HEMATOCRIT 42.1 % (38.0-50.0); MCH 29.9 PG (29.0-34.0); MCHC 31.6 G/DL (30.0-36.0); MCV 94.6 FL (86-99); RBC DIS.WIDTH-CV 15.5 % (11.8-14.6); RBC DIS.WIDTH-SD 53.9 % (39-53); RED BLOOD COUNT 4.45 M/uL (4.00-5.50)
[2016-06-24 13:41] LABS: WHITE BLOOD COUNT 9.4 K/uL (4.1-10.2)
[2016-06-24 15:09] LABS: MEAN PLAT.VOLUME 11.4 uM^3 (9.0-12.4); PLAT.SUFFICIENCY DECREASED; PLATELET COUNT 123 K/uL (156-360)
[2016-06-24] MEDS ORDERED: ASPIR 8181 M1 PO (16:26)
[2016-06-24] MEDS ORDERED: NORVASC5 MG PO (16:26)
[2016-06-24] MEDS ORDERED: AZITHROMYCIN250 MG1 PO (16:28)
[2016-06-24] MEDS ORDERED: BENADRYL25 MG PO (16:29)
[2016-06-24] MEDS ORDERED: CARTIA XT240 MG PO (16:30)
[2016-06-24] MEDS ORDERED: CLARITIN,ALAVAR10 MG PO (16:31)
[2016-06-24] MEDS ORDERED: CARDIZEM CD,CA180 MG PO (16:32)
[2016-06-24] MEDS ORDERED: CYMBALTA60 MG PO (16:33)
[2016-06-24] MEDS ORDERED: FAMOTIDINE20 MG PO (16:33)
[2016-06-24] MEDS ORDERED: FUROSEMIDE20 MG PO ×2 (16:34→16:45)
[2016-06-24] MEDS ORDERED: LORATADINE10 M2 PO (16:35)
[2016-06-24] MEDS ORDERED: MELATIN3 MG PO (16:36)
[2016-06-24] MEDS ORDERED: PERIDEX1 ML MM (16:40)
[2016-06-24] MEDS ORDERED: PRAVASTATIN SOD40 MG PO (16:40)
[2016-06-24] MEDS ORDERED: TAMIFLU75 MG PO (16:46)
[2016-06-24] MEDS ORDERED: BACLOFEN20 MG PO (16:47)
[2016-06-24] MEDS ORDERED: GABAPENTIN400 MG PO (16:48)
[2016-06-24] MEDS ORDERED: TYLENOL REGULA325 MG PO (16:54)
[2016-06-24] MEDS ORDERED: ALBUTEROL2.5 MG/3 M IH (16:55)
[2016-06-24] MEDS ORDERED: XOPENEX1.25 MG/3 IH ×2 (16:56→17:16)
[2016-06-24] MEDS ORDERED: NYSTATIN100000 UN1 PO (17:00)
[2016-06-24] MEDS ORDERED: [UNRECOGNIZED DRUG - OTHER] TP (17:04)
[2016-06-24] MEDS ORDERED: DULCOLAX10 MG PR (17:13)
[2016-06-24] MEDS ORDERED: MILK OF MAGN PO (17:14)
[2016-06-24] MEDS ORDERED: MIRALAX17 GM PO (17:14)
[2016-06-24] MEDS ORDERED: TRAMADOL HCL50 MG PO (17:15)
[2016-06-24 20:00] VITALS: BP 138/75
[2016-06-25] VITALS (7 sets, daily range): BP systolic 106–146; BP diastolic 60–82
[2016-06-25 00:02] LABS: INFLUENZA A VIRAL ANTIGEN POSITIVE; INFLUENZA B VIRAL ANTIGEN NEGATIVE
[2016-06-25 07:39] LABS: EOSINOPHIL (%) 0 % (0-5); IMMATURE GRANULOCYTE (%) 1.1 % (0.0-0.7); IMMATURE GRANULOCYTE COUNT 0.1 K/uL; INSTRUMENT ABS NEUTROPHIL CT 8.2 K/uL; LYMPHOCYTE COUNT 0.6 K/uL (1.0-2.8); MCH 29.4 PG (29.0-34.0); MCHC 31.6 G/DL (30.0-36.0); MEAN PLAT.VOLUME 11.8 uM^3 (9.0-12.4); MONOCYTE (%) 1.3 % (3-12); MONOCYTE COUNT 0.1 K/uL (0-0.8); NEUTROPHIL (%) 90.5 % (45-76); NEUTROPHIL COUNT 8.2 K/uL (1.8-6.4); PLATELET COUNT 132 K/uL (156-360); RBC DIS.WIDTH-CV 15.2 % (11.8-14.6); RBC DIS.WIDTH-SD 51.8 % (39-53); RED BLOOD COUNT 4.73 M/uL (4.00-5.50); WHITE BLOOD COUNT 9.1 K/uL (4.1-10.2)
[2016-06-25 08:05] LABS: ALKALINE PHOSPHATASE 106 IU/L (3-129); ANION GAP 9 MEQ/L (2-14); CHLORIDE 102 MEQ/L (99-109); GFR ESTIMATE (CALCULATED) > 59 mL/min/; GLUCOSE 132 mg/dL (70-99); POTASSIUM 4.3 MEQ/L (3.7-5.4); SAMPLE HEMOLYSIS CHECK 0; SAMPLE ICTERIC CHECK 0; SAMPLE LIPEMIA CHECK 0; SODIUM 142 MEQ/L (136-147); TOTAL BILIRUBIN 0.5 MG/DL (0.0-1.0); UREA NITROGEN (BUN) 22 mg/dL (9-23)
[2016-06-26 04:05] VITALS: BP 139/75
[2016-06-26 07:27] LABS: VANCOMYCIN, TROUGH 11.9 MCG/ML (10-20)
[2016-06-26 08:07] LABS: ALKALINE PHOSPHATASE 93 IU/L (3-129); ANION GAP 9 MEQ/L (2-14); CHLORIDE 103 MEQ/L (99-109); GFR ESTIMATE (CALCULATED) > 59 mL/min/; GLUCOSE 139 mg/dL (70-99); SODIUM 140 MEQ/L (136-147); TOTAL BILIRUBIN 0.6 MG/DL (0.0-1.0)
[2016-06-26 08:09] LABS: UREA NITROGEN (BUN) 43 mg/dL (9-23)
[2016-06-26 08:33] VITALS: BP 146/78
[2016-06-26 09:13] LABS: NO-CHARGE AST (GOT) 28 IU/L (15-37); POTASSIUM 4.4 MEQ/L (3.7-5.4)
[2016-06-26 09:27] LABS: HEMATOCRIT 39.2 % (38.0-50.0); MCH 29.5 PG (29.0-34.0); MCHC 32.4 G/DL (30.0-36.0); MCV 91.2 FL (86-99); MEAN PLAT.VOLUME 12.5 uM^3 (9.0-12.4); PLATELET COUNT 134 K/uL (156-360); RBC DIS.WIDTH-CV 15.5 % (11.8-14.6); RBC DIS.WIDTH-SD 50.4 % (39-53)
[2016-06-26 09:28] LABS: WHITE BLOOD COUNT 15.6 K/uL (4.1-10.2)
[2016-06-26 10:53] LABS: HBSG INDEX 0.23; HPCA INDEX 0.13
[2016-06-26 10:54] LABS: ANTI-HEPATITIS A VIRUS (IGM) Nonreactive; HAV INDEX 0.17
[2016-06-26 10:55] LABS: ANTI-HEPATITIS B CORE (IGM) Nonreactive; HBC IgM INDEX 0.05
[2016-06-26 12:03] VITALS: BP 142/74
[2016-06-26 16:01] VITALS: BP 138/70
[2016-06-26 20:25] VITALS: BP 138/84
[2016-06-26 23:59] VITALS: BP 133/71
[2016-06-27 04:02] VITALS: BP 133/76
[2016-06-27 07:10] LABS: EOSINOPHIL (%) 0 % (0-5); HEMATOCRIT 34.8 % (38.0-50.0); IMMATURE GRANULOCYTE (%) 1.6 % (0.0-0.7); IMMATURE GRANULOCYTE COUNT 0.2 K/uL; INSTRUMENT ABS NEUTROPHIL CT 13.9 K/uL; LYMPHOCYTE COUNT 0.8 K/uL (1.0-2.8); MCH 29.4 PG (29.0-34.0); MCHC 32.2 G/DL (30.0-36.0); MCV 91.3 FL (86-99); MEAN PLAT.VOLUME 11.6 uM^3 (9.0-12.4); MONOCYTE (%) 3.3 % (3-12); MONOCYTE COUNT 0.5 K/uL (0-0.8); NEUTROPHIL COUNT 13.9 K/uL (1.8-6.4); PLATELET COUNT 132 K/uL (156-360); RBC DIS.WIDTH-CV 15.9 % (11.8-14.6); RBC DIS.WIDTH-SD 52.5 % (39-53); RED BLOOD COUNT 3.81 M/uL (4.00-5.50); WHITE BLOOD COUNT 15.4 K/uL (4.1-10.2)
[2016-06-27 07:35] LABS: ANION GAP 9 MEQ/L (2-14); CHLORIDE 105 MEQ/L (99-109); GFR ESTIMATE (CALCULATED) > 59 mL/min/; GLUCOSE 129 mg/dL (70-99); POTASSIUM 4.8 MEQ/L (3.7-5.4); SAMPLE HEMOLYSIS CHECK 0; SAMPLE ICTERIC CHECK 0; SAMPLE LIPEMIA CHECK 0; SODIUM 143 MEQ/L (136-147); UREA NITROGEN (BUN) 61 mg/dL (9-23)
[2016-06-27 08:01] VITALS: BP 120/60
[2016-06-27 11:42] VITALS: BP 120/72
[2016-06-27] MEDS ORDERED: AUGMENTIN875 MG PO (14:20)
[2016-06-27] MEDS ORDERED: DOXYCYCLINE HY100 MG PO (14:20)
== END 2016-06-27 16:40 | DRG 195 ==
LOC: EME 11:33 → 5SOUTH 15:53 → EDOF 15:53 → 5SOUTH 19:16
PROVIDERS: Emergency Medicine; Hospitalist; Internal Medicine
DX: J09.X1 Influenza due to identified novel influenza A virus with pneumonia (principal); J15.9 Unspecified bacterial pneumonia; Y95 Nosocomial condition; I10 Essential (primary) hypertension; I69.998 Other sequelae following unspecified cerebrovascular disease; R09.02 Hypoxemia; K21.9 Gastro-esophageal reflux disease without esophagitis; F03.90 Unspecified dementia, unspecified severity, without behavioral disturbance, psychotic disturbance, mood disturbance, and anxiety; D69.6 Thrombocytopenia, unspecified; Z87.891 Personal history of nicotine dependence; Z66 Do not resuscitate; R74.0 Nonspecific elevation of levels of transaminase and lactic acid dehydrogenase [LDH]
CPT/HCPCS: 71010; 71250; 76705; 80048; 80053; 80074; 80202; 82272; 83605; 83880; 84484; 84999; 85025; 85027; 87040; 87070; 87205; 87449; 87502; 93005; 94640; 94640 76; 94667; 94760; 94799; 99202; 99281; 99285; J0692; J1650; J2920; J3370; J7050